=== PATIENT | male | born 1935 | race Hispanic/Latino ===

== ENCOUNTER 2023-08-20 00:10 | Observation (INO) | payer OTHER, MEDICARE ==
[2023-08-20 01:23] LABS: #Basophils 0.1 thou/uL (0.0-0.2); #Eosinphils 0.1 thou/uL (0.0-0.7); #Monocytes 0.4 thou/uL (0.11-0.59); #Neutrophils 3.8 thou/uL (1.40-6.50); %Basophils 1.1 % (0.0-1.0); %Lymphocytes 21.4 % (21.0-51.0); %Monocytes 7.7 % (0.0-10.0); %Neutrophils 67.6 % (42.0-75.0); Hematocrit 32.9 % (42.0-52.0); Hemoglobin 10.7 g/dL (14.0-18.0); Mean Corpuscular HGB CONC 32.5 g/dL (32.0-36.0); Mean Corpuscular Hemoglobin 30.7 pg (27.0-31.0); Mean Corpuscular Volume 94.3 fl (78.0-98.0); Mean Platelet Volume 10.9 fL (7.4-10.4); Platelet Count 186 10x3/uL (130-400); RBC Distribution Width 12.4 % (11.5-14.5); Red Blood Cell (RBC) Count 3.49 mill/uL (4.70-6.10); White Blood Cell (WBC) Count 5.6 10x3/uL (4.8-10.8)
[2023-08-20 01:32] LABS: ALT (SGPT) 13 U/L (8-55); AST (SGOT) 29 U/L (5-34); Albumin 3.8 g/dL (3.4-4.8); Alkaline Phosphatase 72 U/L (40-110); Anion Gap 13 mmol/L (10-20); BUN (Urea Nitrogen) 33 mg/dL (8.4-25.7); Bilirubin, Total 0.3 mg/dL (0.2-1.2); Calc. Creatinine Clearance 0 mL/min (70-130); Calcium 9.1 mg/dL (7.8-10.44); Carbon Dioxide 25 mmol/L (23-31); Chloride 107 mmol/L (98-107); Estimated GFR 35; Globulin 2.9 g/dL (2.4-3.5); Lipase 60 U/L (8-78); Potassium 3.8 mmol/L (3.5-5.1); Protein, Total 6.7 g/dL (5.8-8.1); Sodium 141 mmol/L (136-145)
[2023-08-20 01:36] LABS: Troponin I 0.032 ng/mL (< 0.028)
[2023-08-20 01:40] LABS: Glucose 47 mg/dL (83-110)
[2023-08-20] MEDS ORDERED: Milk Of Magnesia 30 ML UDCUP PO PRN (02:22)
[2023-08-20] MEDS ORDERED: Dextrose 50% Abboject 50 ML SYRINGE SLOW IVP PRN (02:24)
[2023-08-20] MEDS ORDERED: Ondansetron PF 4 MG/2 ML Vial IVP PRN (02:24)
[2023-08-20] MEDS ORDERED: Glucagon 1 MG/ML KIT IM PRN (02:24)
[2023-08-20] MEDS ORDERED: Acetaminophen 325 MG TAB PO PRN (02:24)
[2023-08-20] MEDS ORDERED: Dextrose 5% in Water 1,000 ML IV PRN (02:24)
[2023-08-20] MEDS ORDERED: HumaLOG 300 UNITS/3 ML VIAL SC PRN ×2 (02:24)
[2023-08-20 02:27] LABS: Magnesium 2.4 mg/dL (1.6-2.6)
[2023-08-20] MEDS ORDERED: Dextrose 5% in Water 1,000 ML IV SCH (02:30)
[2023-08-20 05:37] VITALS: BMI 25.7
[2023-08-20 07:09] LABS: #Eosinphils 0.1 thou/uL (0.0-0.7); #Monocytes 0.5 thou/uL (0.11-0.59); #Neutrophils 3.2 thou/uL (1.40-6.50); %Basophils 0.7 % (0.0-1.0); %Eosinophils 1.9 % (0.0-10.0); %Lymphocytes 28.9 % (21.0-51.0); %Monocytes 8.3 % (0.0-10.0); Hemoglobin 10.8 g/dL (14.0-18.0); Mean Corpuscular HGB CONC 32.7 g/dL (32.0-36.0); Mean Corpuscular Volume 94.8 fl (78.0-98.0); Mean Platelet Volume 10.8 fL (7.4-10.4); Platelet Count 189 10x3/uL (130-400); RBC Distribution Width 12.3 % (11.5-14.5); Red Blood Cell (RBC) Count 3.48 mill/uL (4.70-6.10); White Blood Cell (WBC) Count 5.4 10x3/uL (4.8-10.8)
[2023-08-20 07:19] LABS: Troponin I 0.035 ng/mL (< 0.028)
[2023-08-20 07:25] LABS: Hemoglobin A1c 7.5 % (4.0-6.0)
[2023-08-20 07:32] LABS: Anion Gap 13 mmol/L (10-20); BUN (Urea Nitrogen) 35 mg/dL (8.4-25.7); Calc. Creatinine Clearance 34 mL/min (70-130); Calcium 9.1 mg/dL (7.8-10.44); Carbon Dioxide 22 mmol/L (23-31); Chloride 108 mmol/L (98-107); Estimated GFR 36; Glucose 152 mg/dL (83-110); Potassium 4.3 mmol/L (3.5-5.1); Sodium 139 mmol/L (136-145)
[2023-08-20] MEDS ORDERED: Ferrous Sulfate 325 MG TAB PO SCH (08:00)
[2023-08-20] MEDS ORDERED: Aspirin Chewable 81 MG TAB PO SCH (09:00)
[2023-08-20] MEDS ORDERED: Gabapentin 300 MG CAP PO SCH (09:00)
[2023-08-20] MEDS ORDERED: Metoprolol Tartrate 25 MG TAB PO SCH (09:00)
[2023-08-20] MEDS ORDERED: Losartan 25 MG TAB PO SCH (09:00)
[2023-08-20] MEDS ORDERED: Famotidine 20 MG TAB PO SCH (09:00)
[2023-08-20] MEDS ORDERED: Atorvastatin Calcium 40 MG TAB PO SCH (09:00)
[2023-08-20] MEDS: Heparin 5,000 UNITS/ML VIAL SC SCH ×2 (09:13→14:53)
[2023-08-20 11:17] LABS: Troponin I 0.019 ng/mL (< 0.028)
[2023-08-20 16:37] VITALS: BP 162/88; TEMP 98.5
[2023-08-21] MEDS ORDERED: Famotidine 20 MG TAB PO SCH (09:00)
== END 2023-08-20 16:30 | disposition home or self-care (01) ==
LOC: ERS 00:10 → 2NO 02:29
PROVIDERS: ADMIT Student in an Organized Health Care Education/Training Program; ATTEND Student in an Organized Health Care Education/Training Program
DX: E11.649 Type 2 diabetes mellitus with hypoglycemia without coma (principal); I21.A1 Myocardial infarction type 2; I12.9 Hypertensive chronic kidney disease with stage 1 through stage 4 chronic kidney disease, or unspecified chronic kidney disease; E11.22 Type 2 diabetes mellitus with diabetic chronic kidney disease; N18.30 Chronic kidney disease, stage 3 unspecified; D63.1 Anemia in chronic kidney disease; E78.5 Hyperlipidemia, unspecified; K21.9 Gastro-esophageal reflux disease without esophagitis; I25.10 Atherosclerotic heart disease of native coronary artery without angina pectoris; F03.90 Unspecified dementia, unspecified severity, without behavioral disturbance, psychotic disturbance, mood disturbance, and anxiety; G47.33 Obstructive sleep apnea (adult) (pediatric); Z79.4 Long term (current) use of insulin; Z79.82 Long term (current) use of aspirin; Z95.1 Presence of aortocoronary bypass graft; Z95.4 Presence of other heart-valve replacement; Z88.8 Allergy status to other drugs, medicaments and biological substances
CPT/HCPCS: 36415; 36416; 71045; 80053; 83036; 83690; 83735; 84484; 85025; 93005; 96372; G0378; J1644; J1815; J7070

== ENCOUNTER 2024-07-10 13:23 | Inpatient (IN) | payer MEDICARE, OTHER ==
[~2024-07-10 13:23] MED LIST: Iopamidol-370 76% 500 ML MDV (1 ML CHARGE) ONE
[2024-07-10] MEDS ORDERED: Magnesium 2 GM/50 ML BAG (IN WATER) ONE (13:47)
[2024-07-10] MEDS ORDERED: dilTIAZem 125 MG/25 ML SDV ONE (13:48)
[2024-07-10] MEDS ORDERED: Diltiazem HCl/D5W 125 ML ONE (13:48)
[2024-07-10 13:49] LABS: #Basophils 0.08 10x3/uL (0.0-0.2); %Eosinophils 2.6 % (0.0-10.0); %Lymphocytes 28.4 % (21.0-51.0); %Monocytes 7.2 % (0.0-10.0); %Neutrophils 60.6 % (42.0-75.0); Hematocrit 32.8 % (42.0-52.0); Hemoglobin 10.5 g/dL (14.0-18.0); Mean Corpuscular Hemoglobin 30.3 pg (27.0-31.0); Mean Corpuscular Volume 94.5 fL (78.0-98.0); Mean Platelet Volume 10.8 fL (7.4-10.4); Platelet Count 249 10x3/uL (130-400); RBC Distribution Width 12.6 % (11.5-14.5); Red Blood Cell (RBC) Count 3.47 mill/uL (4.70-6.10)
[2024-07-10 14:07] LABS: ALT (SGPT) 15 U/L (8-55); AST (SGOT) 22 U/L (5-34); Albumin 3.7 g/dL (3.4-4.8); Alkaline Phosphatase 83 U/L (40-110); Anion Gap 13 mmol/L (10-20); BUN (Urea Nitrogen) 25 mg/dL (8.4-25.7); Bilirubin, Total 0.6 mg/dL (0.2-1.2); Calc. Creatinine Clearance 0 mL/min (70-130); Calcium 9.1 mg/dL (7.8-10.44); Carbon Dioxide 20 mmol/L (23-31); Chloride 106 mmol/L (98-107); Estimated GFR 28; Glucose 248 mg/dL (83-110); Lipase 25 U/L (8-78); Magnesium 2.2 mg/dL (1.6-2.6); Potassium 3.4 mmol/L (3.5-5.1); Protein, Total 6.7 g/dL (5.8-8.1); Sodium 136 mmol/L (136-145)
[2024-07-10 14:08] LABS: INR-International Normal Ratio 1.1; PTT 28.3 sec (22.9-36.1); Prothrombin Time 13.8 sec (12.0-14.7)
[2024-07-10 14:11] LABS: D-Dimer Test 2.18 mcg/mL (0.27-0.43); Troponin I 0.068 ng/mL (< 0.028)
[2024-07-10] MEDS ORDERED: Sodium Chloride 0.9% 100 ML ONE (15:03)
[2024-07-10] MEDS ORDERED: cefTRIAXone (ROCEPHIN) 1 GM VIAL ONE (15:03)
[2024-07-10] MEDS ORDERED: Ondansetron PF 4 MG/2 ML Vial IVP PRN (16:02)
[2024-07-10 16:03] LABS: Bilirubin Negative (Negative); Blood, Urine Negative (Negative); CAUTI Indications for Culture Alt mental st,lethar; Clarity Clear (Clear); Glucose, Urine (Dipstick) Greater than 1000 mg/dL (Negative); Ketone, Urine Negative (Negative); Leukocyte 250 Leu/uL (Negative); Nitrite Negative (Negative); Protein, Urine (Dipstick) 30 mg/dL (Neg-Trace); RBC/HPF 0-3 HPF (0-3); Specific Gravity, Urine 1.034 (1.002-1.036); Squamous Epithelial 0-3 HPF (0-3); Urobilinogen Normal mg/dL (Less than 2); Yeast-Budding 1+ HPF (None Seen)
[2024-07-10] MEDS ORDERED: Dextrose 50% Abboject 50 ML SYRINGE SLOW IVP PRN (16:04)
[2024-07-10] MEDS ORDERED: Dextrose 5% in Water 1,000 ML IV PRN (16:04)
[2024-07-10] MEDS ORDERED: Glucagon 1 MG/ML KIT IM PRN (16:04)
[2024-07-10] MEDS ORDERED: Lorazepam 1 MG TAB PO PRN (16:05)
[2024-07-10] MEDS ORDERED: Ondansetron ODT 4 MG TAB PO PRN (16:05)
[2024-07-10] MEDS ORDERED: Lorazepam 2 MG/ML VIAL IM PRN (16:05)
[2024-07-10 16:13] LABS: Bacteria/HPF Rare-Few HPF (None Seen); Yeast-Hyphae Rare HPF (None Seen)
[2024-07-10 16:14] LABS: Urine Culture Reflex Yes Yes
[2024-07-10] MEDS ORDERED: Electrolyte Replacement Protocol 1 EACH FS SCH (16:15)
[2024-07-10 17:21] VITALS: BMI 24.0
[2024-07-10 17:37] LABS: Troponin I 0.065 ng/mL (< 0.028)
[2024-07-10] MEDS: Potassium Chloride 20 MEQ TAB PO SCH (18:17)
[2024-07-10] MEDS: Thiamine HCl 200 MG/2 ML VIAL SLOW IVP SCH (18:17)
[2024-07-10] MEDS: Fluconazole 100 MG TAB PO SCH (18:17)
[2024-07-10 21:25] LABS: Troponin I 0.047 ng/mL (< 0.028)
[2024-07-10] MEDS: Metoprolol Tartrate 25 MG TAB PO SCH (21:50)
[2024-07-10] MEDS: Multivit, Therapeutic 1 TAB PO SCH (21:50)
[2024-07-10] MEDS: Folic Acid 1 MG TAB PO SCH (21:50)
[2024-07-10] MEDS: Famotidine 20 MG TAB PO SCH (21:50)
[2024-07-10] MEDS: Insulin Lispro 100 UNIT/ML 10 ML VIAL SC PRN (21:53)
[2024-07-10] MEDS: Diltiazem HCl/D5W 125 MG in Premix 1 BAG IVPB SCH (22:08)
[2024-07-11 04:58] LABS: #Basophils 0.07 10x3/uL (0.0-0.2); %Basophils 0.8 % (0.0-1.0); %Lymphocytes 17.2 % (21.0-51.0); %Neutrophils 69.5 % (42.0-75.0); Hematocrit 29.8 % (42.0-52.0); Hemoglobin 9.5 g/dL (14.0-18.0); Mean Corpuscular HGB CONC 31.9 g/dL (32.0-36.0); Mean Corpuscular Hemoglobin 30.6 pg (27.0-31.0); Mean Corpuscular Volume 96.1 fL (78.0-98.0); Mean Platelet Volume 11.1 fL (7.4-10.4); Platelet Count 229 10x3/uL (130-400); RBC Distribution Width 12.9 % (11.5-14.5)
[2024-07-11 05:23] LABS: Anion Gap 12 mmol/L (10-20); BUN (Urea Nitrogen) 28 mg/dL (8.4-25.7); Calc. Creatinine Clearance 23 mL/min (70-130); Calcium 8.6 mg/dL (7.8-10.44); Carbon Dioxide 20 mmol/L (23-31); Chloride 106 mmol/L (98-107); Estimated GFR 26; Glucose 112 mg/dL (83-110); Potassium 3.9 mmol/L (3.5-5.1); Sodium 134 mmol/L (136-145)
[2024-07-11] MEDS ORDERED: Furosemide 40 MG (4 mL) VIAL SLOW IVP SCH (09:00)
[2024-07-11] MEDS: DULoxetine 30 MG CAP PO SCH (09:44)
[2024-07-11] MEDS: Furosemide 40 MG TAB PO SCH (09:44)
[2024-07-11] MEDS: Aspirin Chewable 81 MG TAB PO SCH (09:44)
[2024-07-11] MEDS: Enoxaparin 30 MG (0.3 mL) SYRINGE SC SCH (09:45)
[2024-07-11] MEDS: Atorvastatin Calcium 40 MG TAB PO SCH (09:45)
[2024-07-11] MEDS: cefTRIAXone\\ROCEPHIN 1 GM in Sodium Chloride 0.9% 100 ML IVPB SCH (13:27)
[2024-07-11] MEDS: Diltiazem HCl/D5W 125 MG in Premix 1 BAG IVPB SCH (16:02)
[2024-07-11] MEDS: Acetaminophen 325 MG TAB PO PRN (21:01)
[2024-07-11] MEDS: rOPINIRole HCl 1 MG TAB PO SCH (21:01)
[2024-07-11] MEDS: levETIRAcetam 500 MG TAB PO SCH (21:02)
[2024-07-12] MEDS: Nitroglycerin 2% Ointment 1 INCH/1 GM Packet TOP SCH (02:53)
[2024-07-12 03:03] LABS: #Basophils 0.11 10x3/uL (0.0-0.2); %Basophils 1.2 % (0.0-1.0); %Eosinophils 2.8 % (0.0-10.0); %Lymphocytes 30.9 % (21.0-51.0); %Monocytes 9.1 % (0.0-10.0); %Neutrophils 55.7 % (42.0-75.0); Hematocrit 32.4 % (42.0-52.0); Hemoglobin 10.5 g/dL (14.0-18.0); Mean Corpuscular HGB CONC 32.4 g/dL (32.0-36.0); Mean Corpuscular Hemoglobin 30.5 pg (27.0-31.0); Mean Corpuscular Volume 94.2 fL (78.0-98.0); Mean Platelet Volume 11.1 fL (7.4-10.4); Platelet Count 260 10x3/uL (130-400); Red Blood Cell (RBC) Count 3.44 mill/uL (4.70-6.10)
[2024-07-12 03:32] LABS: Troponin I 0.051 ng/mL (< 0.028)
[2024-07-12 03:51] LABS: Anion Gap 18 mmol/L (10-20); BUN (Urea Nitrogen) 29 mg/dL (8.4-25.7); Calc. Creatinine Clearance 20 mL/min (70-130); Carbon Dioxide 16 mmol/L (23-31); Chloride 107 mmol/L (98-107); Estimated GFR 21; Glucose 181 mg/dL (83-110); Magnesium 2.5 mg/dL (1.6-2.6); Sodium 137 mmol/L (136-145)
[2024-07-12] MEDS: Lactated Ringer's 1,000 ML IV SCH (04:59)
[2024-07-12] MEDS: Lidocaine 2% Viscous Solution 10 ML, Aluminum & Magnesium Hydroxide 30 ML SSW SCH (05:38)
[2024-07-12] MEDS: QUEtiapine 25 MG TAB PO SCH (06:41)
[2024-07-12] MEDS ORDERED: Furosemide 40 MG TAB PO SCH (07:30)
[2024-07-12] MEDS ORDERED: Clopidogrel Bisulfate 300 MG TAB PO SCH (07:45)
[2024-07-12 08:11] VITALS: BP 127/78; TEMP 96.9
[2024-07-12] MEDS: Megestrol Acetate 800 MG/20 ML UDCUP PO SCH (08:15)
[2024-07-12] MEDS: Famotidine 20 MG TAB PO SCH (08:16)
[2024-07-12] MEDS: Lorazepam 1 MG TAB PO PRN (08:17)
[2024-07-12] MEDS ORDERED: FLU (Fluad Triv) TS24-25 (65UP)/MF59C/PF 45 MCG/0.5 ML Syringe IM ONE (09:00)
[2024-07-12] MEDS ORDERED: EPINEPHrine 1 MG/10 ML Abboject SYRINGE ONE (09:41)
[2024-07-12] MEDS ORDERED: Lorazepam 2 MG/ML VIAL SLOW IVP PRN (10:19)
[2024-07-12] MEDS: Morphine 4 MG/ML VIAL ONE (10:21)
[2024-07-12] MEDS ORDERED: Morphine 2 MG/ML VIAL SLOW IVP PRN (10:21)
[2024-07-12] MEDS: Enoxaparin 80 MG (0.8 mL) SYRINGE SC SCH (10:35)
[2024-07-12] MEDS ORDERED: Nitroglycerin 2% Ointment 1 INCH/1 GM Packet TOP SCH (14:00)
[2024-07-12] MEDS ORDERED: Lorazepam 0.5 MG TAB PO SCH (16:15)
[2024-07-13] MEDS ORDERED: Thiamine 100 MG TAB PO SCH (09:00)
[2024-07-13] MEDS ORDERED: Lorazepam 0.5 MG TAB PO PRN (16:05)
== END 2024-07-12 18:00 | disposition expired ==
LOC: ERS 13:23 → 2NO 15:26
PROVIDERS: ADMIT Internal Medicine; ATTEND Family Medicine
PROC: 3E03329 Introduction of Other Anti-infective into Peripheral Vein, Percutaneous Approach (ICD-10-PCS; 2024-07-11)
PROC: 5A12012 Performance of Cardiac Output, Single, Manual (ICD-10-PCS; principal; 2024-07-12)
PROC: 3E033XZ Introduction of Vasopressor into Peripheral Vein, Percutaneous Approach (ICD-10-PCS; 2024-07-12)
DX: I48.0 Paroxysmal atrial fibrillation (principal); F02.83 Dementia in other diseases classified elsewhere, unspecified severity, with mood disturbance; I21.A1 Myocardial infarction type 2; N17.9 Acute kidney failure, unspecified; I25.110 Atherosclerotic heart disease of native coronary artery with unstable angina pectoris; N39.0 Urinary tract infection, site not specified; G40.909 Epilepsy, unspecified, not intractable, without status epilepticus; G20.A1 Parkinson's disease without dyskinesia, without mention of fluctuations; E78.5 Hyperlipidemia, unspecified; E87.6 Hypokalemia; D63.1 Anemia in chronic kidney disease; N18.30 Chronic kidney disease, stage 3 unspecified; I12.9 Hypertensive chronic kidney disease with stage 1 through stage 4 chronic kidney disease, or unspecified chronic kidney disease; E11.22 Type 2 diabetes mellitus with diabetic chronic kidney disease; Z95.1 Presence of aortocoronary bypass graft; Z95.2 Presence of prosthetic heart valve; R29.6 Repeated falls; Z88.8 Allergy status to other drugs, medicaments and biological substances; I95.9 Hypotension, unspecified; G30.9 Alzheimer's disease, unspecified; I46.9 Cardiac arrest, cause unspecified
CPT/HCPCS: 36415; 36416; 71045; 71275; 80048; 80053; 81001; 83605; 83690; 83735; 83880; 84439; 84443; 84484; 85025; 85379; 85610; 85730; 87040; 87077; 87086; 87428; 93005; 93010; 93306; 96365; 96375; J0171; J0696; J1650; J1815; J2272; J3411; J3475; J7120; Q9967